=== PATIENT | male | born 1970 | race Caucasian/White ===

== ENCOUNTER 2023-10-11 03:14 | Emergency (ER) | payer BC ==
[2023-10-11 03:35] VITALS: RESP 18; TEMP 97.3
[2023-10-11] MEDS ORDERED: Sodium Chloride 0.9% 1000 ML 1,000 ML ONE (03:41)
[2023-10-11] MEDS: Sodium Chloride 0.9% 1000 ML 1,000 ML IV STA (03:43)
--- NOTE | 2023-10-11 03:46 | ERPHSYRPT ---
- History of Present Illness Time Seen by Provider: 10/11/23 03:38 Historian: patient Exam Limitations: no limitations Patient Subjective Stated Complaint: pt states that he has left lower abdomen pain. pt states I had a kidney stone 20 years ago and its the same pain Triage Nursing Assessment: pt ambulated into the er; pt is axo x4; c/o LLQ pain; pt states a 6/10 to LLQ; active bowel sounds in all quads; c/o nausea; denies V/D; no respiratory distress present; skin PDW; hypertensive Physician History: 53yo m presents via private vehicle for LLQ abdominal pain that began roughly 1h [employer]. Pt reports he began having LLQ pain that woke him up from sleep, reports some associated diaphoresis and nausea but no vomiting. Pt states he also felt some tenderness in his bladder. Pt denies any dysuria, hematuria, frequency or hesitancy. Pt states his last BM was 3-4d ago, states that is normal for him. Pt denies any hx of abdominal surgeries, does endorse hx of kidney stone about 10yr ago. Pt currently denies cp, soa, n/v, states pain has mostly resolved. Timing/Duration: today Activities at Onset: sleep Quality: sharpness Abdominal Pain Onset Location: LLQ Pain Radiation: no radiation Severity of Pain-Max: moderate Severity of Pain-Current: mild Modifying Factors: Improves With: nothing Previous symptoms: same symptoms as today Allergies/Adverse Reactions: No Known Drug Allergies Allergy (Unverified 10/11/23 03:19) Hx Tetanus, Diphtheria Vaccination/Date Given: Yes Hx Influenza Vaccination/Date Given: No Hx Pneumococcal Vaccination/Date Given: No Immunizations Up to Date: No Travel Risk - International Travel Have you traveled outside of the country in past 3 weeks: No - Emerging Infectious Disease Are you exhibiting symptoms associated with any current EIDs: No - Review of Systems Constitutional: No Symptoms Respiratory: No Symptoms Cardiac: No Symptoms Abdominal/Gastrointestinal: Abdominal Pain, Nausea, No Vomiting, No Diarrhea, No Constipation Genitourinary Symptoms: No Dysuria, No Frequency, No Hematuria, No Incontinence, No Urgency, No Flank Pain - Past Medical History Pertinent Past Medical History: No - Past Surgical History Past Surgical History: No - Social History Smoking Status: Never smoker Exposure to second hand smoke: No Drug Use: none - Social Determinants of Health Will the patient participate in the screening: Yes Do you worry about a steady place to live?: No Do you have any problems with any of the following?: No known problems In the past 12 months,have you had to go without utilities?: No Transportation Issues: No Has anyone in your support network made you feel unsafe?: No Have you or anyone in your house had to go without enough: No - Nursing Vital Signs Nursing Vital Signs: Initial Vital Signs Pulse Rate 71 10/11/23 03:23 Blood Pressure 161/85 10/11/23 03:23 O2 Sat by Pulse Oximetry 100 10/11/23 03:23 Pain Scale Pain Intensity 0 - Physical Exam General Appearance: no apparent distress, alert Respiratory Exam: normal breath sounds, chest tenderness, lungs clear, airway intact, No respiratory distress Cardiovascular Exam: regular rate/rhythm, normal heart sounds, normal peripheral pulses Gastrointestinal/Abdomen Exam: soft, normal bowel sounds, No tenderness, No distention, No guarding, No rebound Back Exam: normal inspection, No CVA tenderness Neurologic Exam: alert, oriented x 3, cooperative, normal mood/affect Lymphatic Exam: adenopathy SpO2 Interpretation: normal SpO2: 100 O2 Delivery: Room Air Ordered Tests: Active Orders 24 hr Category Date Time Status IV Insertion STAT Care 10/11/23 03:35 Active ABDOMEN AND PELVIS W/0 CONTRAS [CT] Stat Exams 10/11/23 03:33 Completed CBC W DIFF Stat Lab 10/11/23 04:14 Completed CMP Stat Lab 10/11/23 04:14 Completed LIPASE Stat Lab 10/11/23 04:14 Completed UA W/RFX UR CULTURE Stat Lab 10/11/23 03:35 Completed Medication Summary Discontinued Medications Generic Name Dose Route Start Last Admin Trade Name Freq PRN Reason Stop Dose Admin Sodium Chloride 1,000 mls @ 999 mls/hr 10/11/23 03:33 10/11/23 04:48 Sodium Chloride 0.9% 1000 Ml IV 10/11/23 04:33 Infused .Q1H1M STA Infusion Sodium Chloride Confirm 10/11/23 03:41 Sodium Chloride 0.9% 1000 Ml Administered 10/11/23 03:42 Dose 1,000 mls @ ud .ROUTE .K-MED ONE Lab/Rad Data: Laboratory Result Diagrams 10/11/23 04:14 10/11/23 04:14 Laboratory Results 10/11/23 10/11/23 10/11/23 Range/Units 04:14 04:14 03:35 WBC 4.7 (4.0-10.5) x10^3/uL RBC 4.13 (4.1-5.6) x10^6/uL Hgb 13.0 (12.5-18.0) g/dL Hct 37.9 L (42-50) % MCV 91.8 (78-100) fL MCH 31.5 (26-32) pg MCHC 34.3 (32-36) g/dL RDW 12.1 (11.5-14.0) % Plt Count 193 (150-450) x10^3/uL MPV 9.8 (7.5-11.0) fL Gran % 56.6 (36.0-66.0) % Immature Gran % (Auto) 0.2 (0.00-0.4) % Nucleat RBC Rel Count 0.0 (0.00-0.1) % Eos # (Auto) 0.06 (0-0.5) x10^3/uL Immature Gran # (Auto) 0.01 (0.00-0.03) x10^3u/L Absolute Lymphs (auto) 1.51 (1.0-4.6) x10^3/uL Absolute Monos (auto) 0.44 (0.0-1.3) x10^3/uL Absolute Nucleated RBC 0.00 (0.00-0.01) x10^3u/L Lymphocytes % 32.3 (24.0-44.0) % Monocytes % 9.4 (0.0-12.0) % Eosinophils % 1.3 (0.00-5.0) % Basophils % 0.2 (0.0-0.4) % Absolute Granulocytes 2.65 (1.4-6.9) x10^3/uL Basophils # 0.01 (0-0.4) x10^3/uL Sodium 141 (135-145) mmol/L Potassium 4.1 (3.5-5.1) mmol/L Chloride 109 H (98-107) mmol/L Carbon Dioxide 26 (22-30) mmol/L Anion Gap 10.4 (5-15) MEQ/L BUN 14 (9-20) mg/dL Creatinine 0.88 (0.66-1.25) mg/dL Estimated GFR 102.2 ML/MIN Glucose 107 H (74-106) mg/dL Calcium 9.2 (8.4-10.2) mg/dL Total Bilirubin 0.40 (0.2-1.3) mg/dL AST 31 (17-59) U/L ALT 25 (0-50) U/L Alkaline Phosphatase 56 (38-126) U/L Serum Total Protein 7.0 (6.3-8.2) g/dL Albumin 4.2 (3.5-5.0) g/dL Lipase 56 (23-300) U/L Urine Color Yellow (Yellow) Urine Appearance Clear (Clear) Urine pH 6.0 (4.6-8.0) Ur Specific [place] 1.015 (1.005-1.030) Urine Protein Negative (Negative) Urine Glucose (UA) Negative (Negative) mg/dL Urine Ketones Negative (Negative) Urine Blood Negative (Negative) Urine Nitrite Negative (Negative) Urine Bilirubin Negative (Negative) Urine Urobilinogen 1.0 A (0.2) mg/dL Ur Leukocyte Esterase Negative (Negative) U Hyaline Cast (Auto) NONE SEEN (0-2) /LPF Urine Microscopic RBC 0-2 (0-5) /HPF Urine Microscopic WBC 0-2 (0-5) /HPF Ur Epithelial Cells None Seen (None Seen) /HPF Urine Bacteria None Seen (None Seen) /HPF Urine Culture Reflexed NO (NO) - Progress Progress Note: 10/11/23 05:38 CT abd/pel showed 1. Left mild hydroureteronephrosis secondary to calculus at vesico-ureteric junction. - 2.5mm stone 2. Mild prostatomegaly. 3. Few colonic diverticula with no signs of acute inflammation pt comfortable on re-exam plan to dc home w/ short course flomax and urine strainer stone is small enough that it should pass on its own can use ibuprofen/tylenol for pain return to ED if: develop fevers, develop pain that does not resolve w/ tylenol/ibuprofen, become unable to urinate, develop bloody urine - Departure Departure Disposition: Home Clinical Impression: Ureteral stone, LLQ pain Condition: Stable Critical Care Time: No Referrals: RICHMOND,JESSICA, MD [Primary Care Provider] - Follow up/PCP as directed Additional Instructions: plan to dc home w/ short course flomax and urine strainer stone is small enough that it should pass on its own can use ibuprofen/tylenol for pain return to ED if: develop fevers, develop pain that does not resolve w/ tylenol/ibuprofen, become unable to urinate, develop bloody urine Prescriptions: Tamsulosin HCl 0.4 mg [Flomax 0.4 MG] 0.4 mg PO DAILY #5 cap
[2023-10-11 04:16] LABS: Absolute Neutrophil Ct (ANC) 2.65 x10^3/uL (1.4-6.9); BASOPHIL % 0.2 % (0.0-0.4); Basophil (Absolute #) 0.01 x10^3/uL (0-0.4); Eosinophil % 1.3 % (0.00-5.0); Eosinophil (Absolute #) 0.06 x10^3/uL (0-0.5); Hematocrit 37.9 % (42-50); IMMATURE GRAN # 0.01 x10^3u/L (0.00-0.03); IMMATURE GRAN % 0.2 % (0.00-0.4); Lymphocyte (Absolute #) 1.51 x10^3/uL (1.0-4.6); Lymphocytes % 32.3 % (24.0-44.0); Mean Cell Volume 91.8 fL (78-100); Mean Corpuscular Hemoglobin 31.5 pg (26-32); Mean Corpuscular Hgb Concent. 34.3 g/dL (32-36); Mean Platelet Volume 9.8 fL (7.5-11.0); Monocyte (Absolute #) 0.44 x10^3/uL (0.0-1.3); Monocytes % 9.4 % (0.0-12.0); Neutrophil % 56.6 % (36.0-66.0); Platelet Count 193 x10^3/uL (150-450); Red Blood Count 4.13 x10^6/uL (4.1-5.6); Red Cell Distribution Width 12.1 % (11.5-14.0); White Blood Count 4.7 x10^3/uL (4.0-10.5)
[2023-10-11 04:29] LABS: ALBUMIN 4.2 g/dL (3.5-5.0); ANION GAP 10.4 MEQ/L (5-15); BILIRUBIN,TOTAL 0.4 mg/dL (0.2-1.3); Calcium 9.2 mg/dL (8.4-10.2); Creatinine 1 0.88 mg/dL (0.66-1.25); EST GLOMERULAR FILTRATION RATE 102.2 ML/MIN; Potassium 4.1 mmol/L (3.5-5.1)
[2023-10-11 04:56] LABS: Appearance Clear (Clear); Bacteria None Seen /HPF (None Seen); Bilirubin Negative (Negative); Blood Negative (Negative); Epithelial Cells None Seen /HPF (None Seen); Glucose, Urine Negative (Negative); Hyaline Casts NONE SEEN /LPF (0-2); Ketones Negative (Negative); Leukocyte Esterase Negative (Negative); Nitrite Negative (Negative); Protein,Urine Dip Negative (Negative); RBC 0-2 /HPF (0-5); Specific Gravity 1.015 (1.005-1.030); WBC 0-2 /HPF (0-5)
[2023-10-11 04:57] LABS: ADD URINE CULTURE? NO (NO)
[2023-10-11 05:12] VITALS: BP 132/72; PULSE 62
--- NOTE | 2023-10-11 05:22 | XRAY ---
CLINICAL HISTORY: abdominal pain COMPARISON: None TECHNIQUE: Contiguous axial images were obtained from the level of the diaphragm to the pubic symphysis without intravenous or oral contrast. Coronal and sagittal reconstructions were likewise performed and indicated to increase the sensitivity for detecting clinically relevant pathology. CT scan was performed according to ALARA (as low as reasonable achievable). FINDINGS: The visualized lung bases are clear. Evaluation of the abdominal and pelvic visceral organs is limited without intravenous contrast. The unenhanced liver, spleen, pancreas, and adrenal glands are grossly unremarkable. The gallbladder is present. The kidneys are normal in size and attenuation without obvious calcification. Left mild hydroureteronephrosis noted secondary to calculus measuring 2.5 mm at vesico-ureteric junction. There is no perinephric stranding. Right ureter is normal in caliber. No adenopathy or fluid collections are seen. No evidence of focal or diffuse bowel wall thickening or evidence of bowel obstruction is seen. The appendix is visualized in the right lower quadrant and appears within normal limits. Few colonic diverticula with no signs of acute imflammation noted. Mild prostatomegaly with tiny calcifications noted. The aorta is normal in caliber. The urinary bladder is normal in contour. Rest of the pelvic viscera are grossly unremarkable. No aggressive appearing osseous lesions are identified. IMPRESSION: 1. Left mild hydroureteronephrosis secondary to calculus at vesico-ureteric junction. 2. Mild prostatomegaly. 3. Few colonic diverticula with no signs of acute inflammation. Electronically Signed by: Meng Singh MD. (10/11/2023 05:19:42 EDT)
[2023-10-11] MEDS ORDERED: Flomax 0.4 MG ONE (05:40)
[2023-10-11 05:41] VITALS: O2SAT 100
== END 2023-10-11 05:57 | disposition home or self-care (01) ==
LOC: ED 03:14
DX: N13.2 Hydronephrosis with renal and ureteral calculous obstruction (principal); R10.32 Left lower quadrant pain; R11.0 Nausea; Z87.442 Personal history of urinary calculi
CPT/HCPCS: 36000; 36415; 74176; 80053; 81001; 83690; 85025; 96360; 99284; A9270-GY